=== PATIENT | male | born 1945 | race African-American/Black ===

== ENCOUNTER 2021-03-11 17:38 | Inpatient (IN) ==
[2021-03-11] MEDS ORDERED: SODIUM CHLORIDE 0.9% 1,000 ML IV STA (23:14)
[2021-03-12 00:40] LABS: Basophils % 0.4 % (0.0-0.8); Eosinophils # 0.1 10*3/uL (0.0-0.87); Eosinophils % 1.3 % (0.00-10.9); Hematocrit 36.7 VOL% (42.0-52.0); Hemoglobin 11.8 GM/DL (14.0-18.0); Immature Granulocytes % 0.5 %; Immature Granulocytes Absolute 0.04 #; Lymphocytes % 24.9 % (21.2-54.2); Mean Corpuscular HGB Conc 32.2 GM/DL (32-36); Mean Corpuscular Volume 76.6 FL (87-102); Mean Platelet Volume 10.8 FL (9.6-12.0); Monocytes % 13.5 % (1.7-12.7); Neutrophils % 59.4 % (38.7-73.9); Platelet Count 299 T/CUMM (130-400); Red Blood Count 4.79 MC/CUMM (3.8-5.5); Red Cell Distribution Width 16.4 % (9.3-17.3); White Blood Count 7.8 T/CUMM (4-12)
[2021-03-12 00:42] LABS: Albumin 3.1 G/DL (3.4-5.0); Bilirubin,Total 0.7 MG/DL (0.20-1.00); Calcium 9.9 MG/DL (8.5-10.1); Osmolality,Calculated 287.1 MOS/KG (273-304); Potassium 4.1 MMOL/L (3.5-5.1); Total Protein 7.7 G/DL (6.4-8.2)
[2021-03-12 01:16] LABS: Bilirubin,Urine Negative (Negative); Blood, Urine Negative (Negative); Glucose,Urine (UA) Negative (Negative); Hyaline Casts,Urine 3 /LPF (0-3); Ketones,Urine Negative (Negative); Mucus,Urine Occasional /LPF (Occasional); Nitrite,Urine Negative (Negative); Protein,Urine Negative; Squamous Epithelial Cell,Urine Occasional /HPF (0-10); Urine Appearance CLEAR (Clear); Urine Color Yellow (Yellow); Urine Specific Gravity 1.018 (1.001-1.035); Urine Urobilinogen < 2.0 EU/DL (0.2-1.0)
[2021-03-12 04:20] LABS: PT Patient Result 83.3 SECS (10.5-12.0)
[2021-03-12 04:22] LABS: INR 8.7
[2021-03-12] MEDS ORDERED: PIPERACILLIN/TAZOBACTAM 3,375 MG in SODIUM CHLORIDE 0.9% 100 ML IV STA (04:32)
[2021-03-12] MEDS ORDERED: GLUCAGON 1 MG VIAL IM PRN (05:31)
[2021-03-12] MEDS ORDERED: DEXTROSE 50% 25 GM/50 ML SYRINGE IV PRN (05:31)
[2021-03-12] MEDS ORDERED: ONDANSETRON 4 MG/2 ML VIAL IV PRN (05:33)
[2021-03-12] MEDS ORDERED: hydrALAZINE 20 MG/1 ML VIAL IV PRN (05:33)
[2021-03-12] MEDS ORDERED: MORPHINE 2 MG/1 ML SYRINGE IV PRN (05:33)
[2021-03-12] MEDS ORDERED: SIMETHICONE CHEW 125 MG TABLET PO PRN (05:33)
[2021-03-12] MEDS ORDERED: ACETAMINOPHEN 325 MG TABLET PO PRN (05:33)
[2021-03-12] MEDS ORDERED: cefTRIAXone 1,000 MG in SODIUM CHLORIDE 0.9% 100 ML IV SCH (06:00)
[2021-03-12] MEDS ORDERED: AZITHROMYCIN INJ 500 MG in SODIUM CHLORIDE 0.9% 250 ML IV SCH (06:00)
[2021-03-12] MEDS: SODIUM CHLORIDE 0.45% 1,000 ML IV SCH ×2 (06:20→22:42)
[2021-03-12 06:55] LABS: PT Patient Result 92.4 SECS (10.5-12.0)
[2021-03-12 06:58] LABS: INR 9.7; Partial Thromboplastin Time 78.2 SECS (23.8-32.1)
[2021-03-12] MEDS ORDERED: ALBUTEROL 2.5 MG/3 ML NEB RESP TX SCH (07:00)
[2021-03-12] MEDS: INSULIN REGULAR 100 UNIT/ML SUBCUT SCH ×4 (08:58→22:42)
[2021-03-12] MEDS: DOCUSATE SODIUM 100 MG CAPSULE PO SCH ×2 (09:23→20:35)
[2021-03-12] MEDS: carvediloL 3.125 MG TABLET PO SCH ×2 (09:23→20:35)
[2021-03-12] MEDS: guaiFENesin/DM ER 600-30 MG TABLET PO SCH ×2 (09:24→20:34)
[2021-03-12] MEDS: PANTOPRAZOLE 40 MG TABLET PO SCH (09:24)
[2021-03-12] MEDS ORDERED: PHYTONADIONE 10 MG/1 ML AMP SUBCUT ONE (15:38)
[2021-03-12] MEDS: TAMSULOSIN 0.4 MG CAPSULE PO SCH (22:42)
[2021-03-13 05:57] LABS: Basophils % 0.2 % (0.0-0.8); Eosinophils # 0.1 10*3/uL (0.0-0.87); Eosinophils % 1.1 % (0.00-10.9); Hematocrit 33.2 VOL% (42.0-52.0); Hemoglobin 10.6 GM/DL (14.0-18.0); Immature Granulocytes % 0.4 %; Immature Granulocytes Absolute 0.03 #; Lymphocytes # 1.7 10*3/uL (1.4-4.0); Lymphocytes % 21.3 % (21.2-54.2); Mean Corpuscular HGB Conc 31.9 GM/DL (32-36); Mean Corpuscular Volume 77.6 FL (87-102); Mean Platelet Volume 10.7 FL (9.6-12.0); Monocytes % 12.1 % (1.7-12.7); Neutrophils % 64.9 % (38.7-73.9); Platelet Count 265 T/CUMM (130-400); Red Blood Count 4.28 MC/CUMM (3.8-5.5); Red Cell Distribution Width 16.5 % (9.3-17.3); White Blood Count 8.1 T/CUMM (4-12)
[2021-03-13 06:07] LABS: INR 4.7
[2021-03-13 06:10] LABS: PT Patient Result 47.4 SECS (10.5-12.0)
[2021-03-13 06:25] LABS: Eosinophils 3 % (0-10); Lymphocytes 21 % (20-55); Platelet Estimate Adequate; Segmented Neutrophils 68 % (50-85); Total Cells Counted 100
[2021-03-13 06:26] LABS: HDL Cholesterol 33 MG/DL (40-60); Hypochromasia 1+; Microcytosis 1+; Risk Ratio 3.27; Thyroid Stimulating Hormone < 0.005 uIU/ml (0.358-3.74); Triglycerides 125 MG/DL (2-150)
[2021-03-13] MEDS: INSULIN REGULAR 100 UNIT/ML SUBCUT SCH ×4 (08:08→21:11)
[2021-03-13] MEDS: DOCUSATE SODIUM 100 MG CAPSULE PO SCH ×2 (09:59→21:11)
[2021-03-13] MEDS: ASPIRIN EC 81 MG TABLET PO SCH (09:59)
[2021-03-13] MEDS: carvediloL 3.125 MG TABLET PO SCH (10:00)
[2021-03-13] MEDS: PANTOPRAZOLE 40 MG TABLET PO SCH (10:00)
[2021-03-13] MEDS: guaiFENesin/DM ER 600-30 MG TABLET PO SCH ×2 (10:00→21:10)
[2021-03-13] MEDS: amLODIPine 5 MG TABLET PO SCH (10:01)
[2021-03-13] MEDS: cefTRIAXone 1,000 MG in SODIUM CHLORIDE 0.9% 100 ML IV SCH (11:53)
[2021-03-13] MEDS: methylPREDNISolone SOD SUC 40 MG/1 ML VIAL IV SCH ×2 (12:30→21:13)
[2021-03-13] MEDS: ALBUTEROL/IPRATROPIUM 3 ML NEB RESP TX SCH ×2 (13:26→20:22)
[2021-03-13 14:09] LABS: Free T4 (Free Thyroxine) 3.82 NG/DL (0.76-1.46); Thyroid Stimulating Hormone < 0.005 uIU/ml (0.358-3.74)
[2021-03-13] MEDS: SODIUM CHLORIDE 0.45% 1,000 ML IV SCH ×2 (15:10→22:45)
[2021-03-13] MEDS: TAMSULOSIN 0.4 MG CAPSULE PO SCH (21:10)
[2021-03-14] MEDS: ALBUTEROL/IPRATROPIUM 3 ML NEB RESP TX SCH ×4 (01:00→19:49)
[2021-03-14] MEDS: methylPREDNISolone SOD SUC 40 MG/1 ML VIAL IV SCH ×3 (03:33→17:49)
[2021-03-14] MEDS: SODIUM CHLORIDE 0.45% 1,000 ML IV SCH (06:47)
[2021-03-14 07:28] LABS: Hematocrit 30.2 VOL% (42.0-52.0); Hemoglobin 9.9 GM/DL (14.0-18.0); Immature Granulocytes % 0.4 %; Immature Granulocytes Absolute 0.03 #; Lymphocytes # 0.4 10*3/uL (1.4-4.0); Lymphocytes % 5.4 % (21.2-54.2); Mean Corpuscular HGB Conc 32.8 GM/DL (32-36); Mean Corpuscular Volume 75.7 FL (87-102); Mean Platelet Volume 10.9 FL (9.6-12.0); Monocytes % 3.7 % (1.7-12.7); Neutrophils % 90.5 % (38.7-73.9); Platelet Count 232 T/CUMM (130-400); Red Blood Count 3.99 MC/CUMM (3.8-5.5); Red Cell Distribution Width 16.1 % (9.3-17.3); White Blood Count 6.7 T/CUMM (4-12)
[2021-03-14 07:37] LABS: INR 1.4; PT Patient Result 15.5 SECS (10.5-12.0)
[2021-03-14 08:01] LABS: Calcium 9.2 MG/DL (8.5-10.1); Osmolality,Calculated 292.1 MOS/KG (273-304); Potassium 4.2 MMOL/L (3.5-5.1)
[2021-03-14] MEDS ORDERED: FUROSEMIDE 40 MG/4 ML VIAL IV ONE ×2 (09:45→14:10)
[2021-03-14] MEDS: INSULIN REGULAR 100 UNIT/ML SUBCUT SCH ×4 (10:32→20:41)
[2021-03-14] MEDS: DOCUSATE SODIUM 100 MG CAPSULE PO SCH ×2 (10:33→20:41)
[2021-03-14] MEDS: amLODIPine 5 MG TABLET PO SCH (10:34)
[2021-03-14] MEDS: METOPROLOL SUCCINATE XL 50 MG TABLET PO SCH (10:34)
[2021-03-14] MEDS: ASPIRIN EC 81 MG TABLET PO SCH (10:34)
[2021-03-14] MEDS: PANTOPRAZOLE 40 MG TABLET PO SCH (10:34)
[2021-03-14] MEDS: guaiFENesin/DM ER 600-30 MG TABLET PO SCH ×2 (10:34→20:41)
[2021-03-14] MEDS: cefTRIAXone 1,000 MG in SODIUM CHLORIDE 0.9% 100 ML IV SCH (10:51)
[2021-03-14] MEDS: CLOPIDOGREL 75 MG TABLET PO SCH (11:05)
[2021-03-14] MEDS: FUROSEMIDE 40 MG/4 ML VIAL IV SCH (15:35)
[2021-03-14] MEDS: TAMSULOSIN 0.4 MG CAPSULE PO SCH (20:41)
[2021-03-15] MEDS: ALBUTEROL/IPRATROPIUM 3 ML NEB RESP TX SCH ×4 (00:39→19:36)
[2021-03-15] MEDS: INSULIN REGULAR 100 UNIT/ML SUBCUT SCH ×4 (13:27→21:03)
[2021-03-15] MEDS: methylPREDNISolone SOD SUC 40 MG/1 ML VIAL IV SCH ×4 (13:33→18:22)
[2021-03-15 13:38] LABS: Hematocrit 30.8 VOL% (42.0-52.0); Hemoglobin 9.9 GM/DL (14.0-18.0); Immature Granulocytes % 0.6 %; Immature Granulocytes Absolute 0.06 #; Lymphocytes # 0.6 10*3/uL (1.4-4.0); Lymphocytes % 5.9 % (21.2-54.2); Mean Corpuscular HGB Conc 32.1 GM/DL (32-36); Mean Corpuscular Volume 75.1 FL (87-102); Mean Platelet Volume 11.6 FL (9.6-12.0); Monocytes % 6.1 % (1.7-12.7); Neutrophils % 87.4 % (38.7-73.9); Platelet Count 286 T/CUMM (130-400); Red Cell Distribution Width 15.9 % (9.3-17.3); White Blood Count 10.5 T/CUMM (4-12)
[2021-03-15] MEDS: ASPIRIN EC 81 MG TABLET PO SCH (13:40)
[2021-03-15] MEDS: METOPROLOL SUCCINATE XL 50 MG TABLET PO SCH (13:42)
[2021-03-15] MEDS: PANTOPRAZOLE 40 MG TABLET PO SCH (13:42)
[2021-03-15] MEDS: cefTRIAXone 1,000 MG in SODIUM CHLORIDE 0.9% 100 ML IV SCH (13:42)
[2021-03-15] MEDS: DOCUSATE SODIUM 100 MG CAPSULE PO SCH ×2 (13:43→21:02)
[2021-03-15] MEDS: CLOPIDOGREL 75 MG TABLET PO SCH (13:43)
[2021-03-15] MEDS: amLODIPine 5 MG TABLET PO SCH (13:43)
[2021-03-15] MEDS: guaiFENesin/DM ER 600-30 MG TABLET PO SCH ×2 (13:44→21:02)
[2021-03-15] MEDS: FUROSEMIDE 40 MG/4 ML VIAL IV SCH ×2 (13:45→15:14)
[2021-03-15 14:09] LABS: Calcium 9.6 MG/DL (8.5-10.1)
[2021-03-15 14:10] LABS: Osmolality,Calculated 296.1 MOS/KG (273-304); Potassium 4.2 MMOL/L (3.5-5.1)
[2021-03-15] MEDS: WARFARIN 5 MG TABLET PO SCH (17:04)
[2021-03-15] MEDS: INSULIN GLARGINE 100 UNIT/ML SUBCUT SCH (21:02)
[2021-03-15] MEDS: TAMSULOSIN 0.4 MG CAPSULE PO SCH (21:02)
[2021-03-16] MEDS: ALBUTEROL/IPRATROPIUM 3 ML NEB RESP TX SCH ×6 (00:08→19:48)
[2021-03-16] MEDS: methylPREDNISolone SOD SUC 40 MG/1 ML VIAL IV SCH ×3 (02:18→17:50)
[2021-03-16 05:48] LABS: Calcium 9.3 MG/DL (8.5-10.1); Osmolality,Calculated 299.1 MOS/KG (273-304)
[2021-03-16] MEDS: INSULIN REGULAR 100 UNIT/ML SUBCUT SCH ×4 (09:02→21:01)
[2021-03-16] MEDS: LOSARTAN 25 MG TABLET PO SCH (09:25)
[2021-03-16] MEDS: METOPROLOL SUCCINATE XL 50 MG TABLET PO SCH (09:25)
[2021-03-16] MEDS: amLODIPine 5 MG TABLET PO SCH (09:25)
[2021-03-16] MEDS: ASPIRIN EC 81 MG TABLET PO SCH (09:25)
[2021-03-16] MEDS: DOCUSATE SODIUM 100 MG CAPSULE PO SCH ×2 (09:25→21:00)
[2021-03-16] MEDS: PANTOPRAZOLE 40 MG TABLET PO SCH (09:26)
[2021-03-16] MEDS: guaiFENesin/DM ER 600-30 MG TABLET PO SCH ×2 (09:26→21:00)
[2021-03-16] MEDS: FUROSEMIDE 40 MG/4 ML VIAL IV SCH ×2 (09:26→17:20)
[2021-03-16] MEDS: CLOPIDOGREL 75 MG TABLET PO SCH (09:26)
[2021-03-16] MEDS: cefTRIAXone 1,000 MG in SODIUM CHLORIDE 0.9% 100 ML IV SCH (09:33)
[2021-03-16 10:57] LABS: INR 1.1; PT Patient Result 12.6 SECS (10.5-12.0)
[2021-03-16] MEDS: methIMAzole 5 MG TABLET PO SCH ×2 (17:20→21:00)
[2021-03-16] MEDS: WARFARIN 5 MG TABLET PO SCH (17:21)
[2021-03-16] MEDS: INSULIN GLARGINE 100 UNIT/ML SUBCUT SCH (21:00)
[2021-03-16] MEDS: TAMSULOSIN 0.4 MG CAPSULE PO SCH (21:00)
[2021-03-17] MEDS: ALBUTEROL/IPRATROPIUM 3 ML NEB RESP TX SCH ×4 (00:41→19:30)
[2021-03-17] MEDS: methylPREDNISolone SOD SUC 40 MG/1 ML VIAL IV SCH ×3 (01:42→17:31)
[2021-03-17 06:28] LABS: Basophils % 0.1 % (0.0-0.8); Hematocrit 31.3 VOL% (42.0-52.0); Hemoglobin 10.4 GM/DL (14.0-18.0); Immature Granulocytes % 1.2 %; Immature Granulocytes Absolute 0.14 #; Lymphocytes % 8.4 % (21.2-54.2); Mean Corpuscular HGB Conc 33.2 GM/DL (32-36); Mean Corpuscular Volume 73.3 FL (87-102); Monocytes % 7.2 % (1.7-12.7); NRBC # 0.03 10*3/uL; Neutrophils % 83.1 % (38.7-73.9); Platelet Count 283 T/CUMM (130-400); Red Blood Count 4.27 MC/CUMM (3.8-5.5); Red Cell Distribution Width 15.9 % (9.3-17.3); White Blood Count 11.6 T/CUMM (4-12)
[2021-03-17 06:36] LABS: INR 1.3; PT Patient Result 14.4 SECS (10.5-12.0)
[2021-03-17 06:49] LABS: Albumin 2.6 G/DL (3.4-5.0); Calcium 8.9 MG/DL (8.5-10.1); Total Protein 6.5 G/DL (6.4-8.2)
[2021-03-17] MEDS: INSULIN REGULAR 100 UNIT/ML SUBCUT SCH ×4 (08:25→21:28)
[2021-03-17] MEDS: LOSARTAN 25 MG TABLET PO SCH (09:27)
[2021-03-17] MEDS: guaiFENesin/DM ER 600-30 MG TABLET PO SCH ×2 (09:27→21:27)
[2021-03-17] MEDS: DOCUSATE SODIUM 100 MG CAPSULE PO SCH ×2 (09:27→21:27)
[2021-03-17] MEDS: methIMAzole 5 MG TABLET PO SCH ×3 (09:27→21:26)
[2021-03-17] MEDS: ASPIRIN EC 81 MG TABLET PO SCH (09:27)
[2021-03-17] MEDS: CLOPIDOGREL 75 MG TABLET PO SCH (09:27)
[2021-03-17] MEDS: FUROSEMIDE 40 MG/4 ML VIAL IV SCH ×2 (09:28→16:35)
[2021-03-17] MEDS: METOPROLOL SUCCINATE XL 100 MG TABLET PO SCH (09:28)
[2021-03-17] MEDS: PANTOPRAZOLE 40 MG TABLET PO SCH (09:28)
[2021-03-17] MEDS: ASCORBIC ACID 500 MG TABLET PO SCH ×2 (09:28→21:26)
[2021-03-17] MEDS: amLODIPine 5 MG TABLET PO SCH (09:28)
[2021-03-17] MEDS: cefTRIAXone 1,000 MG in SODIUM CHLORIDE 0.9% 100 ML IV SCH (09:31)
[2021-03-17] MEDS: HEPARIN DRIP 25,000 UNITS/500 ML PREMIX IV SCH (16:35)
[2021-03-17] MEDS: WARFARIN 5 MG TABLET PO SCH (17:31)
[2021-03-17] MEDS: TAMSULOSIN 0.4 MG CAPSULE PO SCH (21:26)
[2021-03-17] MEDS: INSULIN GLARGINE 100 UNIT/ML SUBCUT SCH (21:27)
[2021-03-18] MEDS: ALBUTEROL/IPRATROPIUM 3 ML NEB RESP TX SCH ×4 (00:30→22:45)
[2021-03-18] MEDS: methylPREDNISolone SOD SUC 40 MG/1 ML VIAL IV SCH ×3 (02:22→21:10)
[2021-03-18 03:26] LABS: INR 1.6; PT Patient Result 17.6 SECS (10.5-12.0)
[2021-03-18] MEDS: ASPIRIN EC 81 MG TABLET PO SCH (09:03)
[2021-03-18] MEDS: LOSARTAN 25 MG TABLET PO SCH (09:03)
[2021-03-18] MEDS: ASCORBIC ACID 500 MG TABLET PO SCH ×2 (09:03→21:07)
[2021-03-18] MEDS: guaiFENesin/DM ER 600-30 MG TABLET PO SCH ×2 (09:03→21:07)
[2021-03-18] MEDS: amLODIPine 5 MG TABLET PO SCH (09:03)
[2021-03-18] MEDS: DOCUSATE SODIUM 100 MG CAPSULE PO SCH ×2 (09:04→21:08)
[2021-03-18] MEDS: methIMAzole 5 MG TABLET PO SCH ×3 (09:04→21:07)
[2021-03-18] MEDS: METOPROLOL SUCCINATE XL 100 MG TABLET PO SCH (09:04)
[2021-03-18] MEDS: PANTOPRAZOLE 40 MG TABLET PO SCH (09:04)
[2021-03-18] MEDS: INSULIN REGULAR 100 UNIT/ML SUBCUT SCH ×4 (09:04→21:02)
[2021-03-18] MEDS: CLOPIDOGREL 75 MG TABLET PO SCH (09:04)
[2021-03-18] MEDS: cefTRIAXone 1,000 MG in SODIUM CHLORIDE 0.9% 100 ML IV SCH ×2 (09:17→10:53)
[2021-03-18] MEDS: FUROSEMIDE 40 MG/4 ML VIAL IV SCH (10:31)
[2021-03-18] MEDS: HEPARIN DRIP 25,000 UNITS/500 ML PREMIX IV SCH (15:17)
[2021-03-18] MEDS: WARFARIN 5 MG TABLET PO SCH (17:11)
[2021-03-18] MEDS: INSULIN GLARGINE 100 UNIT/ML SUBCUT SCH (21:01)
[2021-03-18] MEDS: TAMSULOSIN 0.4 MG CAPSULE PO SCH (21:08)
[2021-03-19] MEDS: ALBUTEROL/IPRATROPIUM 3 ML NEB RESP TX SCH ×4 (01:04→20:54)
[2021-03-19 06:43] LABS: Basophils % 0.1 % (0.0-0.8); Hematocrit 33.9 VOL% (42.0-52.0); Hemoglobin 11.1 GM/DL (14.0-18.0); Immature Granulocytes % 1.3 %; Immature Granulocytes Absolute 0.19 #; Lymphocytes # 1.1 10*3/uL (1.4-4.0); Lymphocytes % 7.4 % (21.2-54.2); Mean Corpuscular HGB Conc 32.7 GM/DL (32-36); Mean Platelet Volume 11.3 FL (9.6-12.0); Monocytes % 6.8 % (1.7-12.7); NRBC # 0.03 10*3/uL; Neutrophils % 84.4 % (38.7-73.9); Platelet Count 301 T/CUMM (130-400); Red Blood Count 4.58 MC/CUMM (3.8-5.5); Red Cell Distribution Width 16.2 % (9.3-17.3)
[2021-03-19 06:45] LABS: INR 2.2; PT Patient Result 23.3 SECS (10.5-12.0)
[2021-03-19 07:04] LABS: Calcium 8.9 MG/DL (8.5-10.1); Osmolality,Calculated 291.7 MOS/KG (273-304); Potassium 4.2 MMOL/L (3.5-5.1)
[2021-03-19] MEDS: methylPREDNISolone SOD SUC 40 MG/1 ML VIAL IV SCH ×2 (08:28→21:17)
[2021-03-19] MEDS: INSULIN REGULAR 100 UNIT/ML SUBCUT SCH ×4 (09:33→21:47)
[2021-03-19] MEDS: DOCUSATE SODIUM 100 MG CAPSULE PO SCH ×2 (09:34→21:18)
[2021-03-19] MEDS: METOPROLOL SUCCINATE XL 100 MG TABLET PO SCH (09:34)
[2021-03-19] MEDS: ASPIRIN EC 81 MG TABLET PO SCH (09:34)
[2021-03-19] MEDS: methIMAzole 5 MG TABLET PO SCH ×3 (09:34→21:18)
[2021-03-19] MEDS: CLOPIDOGREL 75 MG TABLET PO SCH (09:34)
[2021-03-19] MEDS: LOSARTAN 25 MG TABLET PO SCH (09:34)
[2021-03-19] MEDS: ASCORBIC ACID 500 MG TABLET PO SCH ×2 (09:35→21:18)
[2021-03-19] MEDS: amLODIPine 5 MG TABLET PO SCH (09:35)
[2021-03-19] MEDS: PANTOPRAZOLE 40 MG TABLET PO SCH (09:35)
[2021-03-19] MEDS: cefTRIAXone 1,000 MG in SODIUM CHLORIDE 0.9% 100 ML IV SCH (09:36)
[2021-03-19] MEDS: guaiFENesin/DM ER 600-30 MG TABLET PO SCH ×2 (09:54→21:18)
[2021-03-19] MEDS: WARFARIN 5 MG TABLET PO SCH ×2 (16:52→17:19)
[2021-03-19] MEDS: TAMSULOSIN 0.4 MG CAPSULE PO SCH (21:18)
[2021-03-19] MEDS: INSULIN GLARGINE 100 UNIT/ML SUBCUT SCH (21:19)
[2021-03-20] MEDS: ALBUTEROL/IPRATROPIUM 3 ML NEB RESP TX SCH ×3 (01:44→13:10)
[2021-03-20 07:20] LABS: Basophils % 0.1 % (0.0-0.8); Hematocrit 36.1 VOL% (42.0-52.0); Hemoglobin 11.8 GM/DL (14.0-18.0); Immature Granulocytes Absolute 0.14 #; Lymphocytes # 0.9 10*3/uL (1.4-4.0); Lymphocytes % 5.9 % (21.2-54.2); Mean Corpuscular HGB Conc 32.7 GM/DL (32-36); Mean Corpuscular Volume 75.2 FL (87-102); Mean Platelet Volume 11.2 FL (9.6-12.0); Monocytes % 4.9 % (1.7-12.7); NRBC # 0.02 10*3/uL; Neutrophils % 88.1 % (38.7-73.9); Platelet Count 316 T/CUMM (130-400); Red Cell Distribution Width 16.4 % (9.3-17.3); White Blood Count 14.4 T/CUMM (4-12)
[2021-03-20 07:34] LABS: Calcium 8.9 MG/DL (8.5-10.1); Osmolality,Calculated 291.5 MOS/KG (273-304); Potassium 4.3 MMOL/L (3.5-5.1)
[2021-03-20 08:28] LABS: INR 2.9; PT Patient Result 29.8 SECS (10.5-12.0)
[2021-03-20] MEDS: INSULIN REGULAR 100 UNIT/ML SUBCUT SCH ×2 (08:32→12:16)
[2021-03-20] MEDS: PANTOPRAZOLE 40 MG TABLET PO SCH (09:44)
[2021-03-20] MEDS: guaiFENesin/DM ER 600-30 MG TABLET PO SCH (09:44)
[2021-03-20] MEDS: ASCORBIC ACID 500 MG TABLET PO SCH (09:44)
[2021-03-20] MEDS: methIMAzole 5 MG TABLET PO SCH (09:44)
[2021-03-20] MEDS: ASPIRIN EC 81 MG TABLET PO SCH (09:44)
[2021-03-20] MEDS: amLODIPine 5 MG TABLET PO SCH (09:44)
[2021-03-20] MEDS: LOSARTAN 25 MG TABLET PO SCH (09:44)
[2021-03-20] MEDS: DOCUSATE SODIUM 100 MG CAPSULE PO SCH (09:44)
[2021-03-20] MEDS: cefTRIAXone 1,000 MG in SODIUM CHLORIDE 0.9% 100 ML IV SCH (09:45)
[2021-03-20] MEDS: methylPREDNISolone SOD SUC 40 MG/1 ML VIAL IV SCH (09:45)
[2021-03-20] MEDS: METOPROLOL SUCCINATE XL 100 MG TABLET PO SCH (09:45)
[2021-03-20 12:36] VITALS: BP 107/57
== END 2021-03-20 14:50 | disposition swing bed (61) | DRG 193 ==
LOC: N.ED 17:38 → SUATTDRO 03-12 05:31 → N.EDINP 03-12 05:31 → N.TELEN 03-12 13:25
PROVIDERS: ADMIT Emergency Medicine; ATTEND Internal Medicine

== ENCOUNTER 2021-06-18 15:15 | Inpatient (IN) ==
[2021-06-18] MEDS ORDERED: AZITHROMYCIN INJ 500 MG in SODIUM CHLORIDE 0.9% 250 ML IV STA (16:59)
[2021-06-18] MEDS ORDERED: cefTRIAXone 1,000 MG in SODIUM CHLORIDE 0.9% 100 ML IV STA (16:59)
[2021-06-18] MEDS ORDERED: ONDANSETRON 4 MG/2 ML VIAL IV PRN (17:54)
[2021-06-18] MEDS ORDERED: guaiFENesin/DM ER 600-30 MG TABLET PO PRN (17:54)
[2021-06-18] MEDS ORDERED: BISACODYL 5 MG TABLET PO PRN (17:54)
[2021-06-18] MEDS ORDERED: DOCUSATE SODIUM 100 MG CAPSULE PO PRN (17:54)
[2021-06-18] MEDS ORDERED: hydrALAZINE 20 MG/1 ML VIAL IV PRN (17:54)
[2021-06-18] MEDS ORDERED: GLUCAGON 1 MG VIAL IM PRN ×2 (17:54)
[2021-06-18] MEDS ORDERED: DEXTROSE 50% 25 GM/50 ML VIAL IV PRN (17:54)
[2021-06-18 17:58] LABS: Basophils % 0.3 % (0.0-0.8); Eosinophils # 0.1 10*3/uL (0.0-0.87); Eosinophils % 0.4 % (0.00-10.9); Hematocrit 34.6 VOL% (42.0-52.0); Hemoglobin 10.7 GM/DL (14.0-18.0); Immature Granulocytes % 0.5 %; Immature Granulocytes Absolute 0.06 #; Lymphocytes # 3.4 10*3/uL (1.4-4.0); Lymphocytes % 29.6 % (21.2-54.2); Mean Corpuscular HGB Conc 30.9 GM/DL (32-36); Mean Corpuscular Volume 73.2 FL (87-102); Mean Platelet Volume 10.7 FL (9.6-12.0); Monocytes % 14.6 % (1.7-12.7); Neutrophils % 54.6 % (38.7-73.9); Platelet Count 354 T/CUMM (130-400); Red Blood Count 4.73 MC/CUMM (3.8-5.5); Red Cell Distribution Width 18.3 % (9.3-17.3); White Blood Count 11.5 T/CUMM (4-12)
[2021-06-18] MEDS ORDERED: DEXTROSE 10% 250 ML BAG IV PRN (18:13)
[2021-06-18] MEDS ORDERED: NICOTINE 14 MG/24 HR PATCH TRANSDERM PRN (18:29)
[2021-06-18 18:50] LABS: Alanine Aminotransferase 23 U/L (16-61); Albumin 2.7 G/DL (3.4-5.0); Alkaline Phosphatase 154 U/L (45-117); Aspartate Amino Transferase 30 U/L (0-37); Blood Urea Nitrogen 28 MG/DL (7-18); Calcium 9.4 MG/DL (8.5-10.1); Carbon Dioxide 19 MMOL/L (21-32); Estimated Glom Filtration Rate 79 ML/MIN; Glucose 224 MG/DL (74-106); Osmolality,Calculated 293.3 MOS/KG (273-304); Potassium 3.8 MMOL/L (3.5-5.1); Sodium 141 MMOL/L (136-145); Total Protein 7.6 G/DL (6.4-8.2)
[2021-06-18 19:01] LABS: Lymphocytes 28 % (20-55); Segmented Neutrophils 61 % (50-85); Total Cells Counted 100
[2021-06-18 19:02] LABS: Anisocytosis Slight; Burr Cells Few; Poikilocytosis Slight
[2021-06-18] MEDS ORDERED: FUROSEMIDE 40 MG/4 ML VIAL IV ONE (19:32)
[2021-06-18] MEDS ORDERED: METOPROLOL SUCCINATE XL 100 MG TABLET PO ONE (20:44)
[2021-06-18] MEDS: INSULIN LISPRO 100 UNIT/ML SUBCUT SCH (20:45)
[2021-06-18] MEDS: ASCORBIC ACID 500 MG TABLET PO SCH (20:52)
[2021-06-18 21:18] LABS: PT Patient Result > 178.9 SECS (10.5-12.0)
[2021-06-18 21:23] LABS: INR > 17.6
[2021-06-18 23:26] LABS: PT Patient Result > 178.9 SECS (10.5-12.0)
[2021-06-18 23:29] LABS: INR > 17.6
[2021-06-18] MEDS ORDERED: PHYTONADIONE 5 MG/5 ML ORAL.SYR PO ONE (23:40)
[2021-06-19] MEDS: ALBUTEROL/IPRATROPIUM 3 ML NEB RESP TX SCH ×5 (00:15→19:29)
[2021-06-19] MEDS: ACETAMINOPHEN 325 MG TABLET PO PRN (04:20)
[2021-06-19 06:36] LABS: Basophils % 0.1 % (0.0-0.8); Eosinophils % 0.4 % (0.00-10.9); Hematocrit 30.2 VOL% (42.0-52.0); Hemoglobin 9.7 GM/DL (14.0-18.0); Immature Granulocytes Absolute 0.08 #; Lymphocytes # 1.6 10*3/uL (1.4-4.0); Lymphocytes % 19.7 % (21.2-54.2); Mean Corpuscular HGB Conc 32.1 GM/DL (32-36); Mean Corpuscular Volume 70.7 FL (87-102); Mean Platelet Volume 10.1 FL (9.6-12.0); Monocytes % 11.8 % (1.7-12.7); Platelet Count 291 T/CUMM (130-400); Red Blood Count 4.27 MC/CUMM (3.8-5.5); Red Cell Distribution Width 17.7 % (9.3-17.3)
[2021-06-19 07:00] LABS: Alanine Aminotransferase 21 U/L (16-61); Albumin 2.4 G/DL (3.4-5.0); Alkaline Phosphatase 135 U/L (45-117); Aspartate Amino Transferase 29 U/L (0-37); Blood Urea Nitrogen 31 MG/DL (7-18); Calcium 8.7 MG/DL (8.5-10.1); Carbon Dioxide 22 MMOL/L (21-32); Estimated Glom Filtration Rate 87 ML/MIN; Glucose 151 MG/DL (74-106); HDL Cholesterol 27 MG/DL (40-60); Potassium 3.9 MMOL/L (3.5-5.1); Risk Ratio 2.85; Sodium 143 MMOL/L (136-145); Thyroid Stimulating Hormone < 0.005 uIU/ml (0.358-3.74); Total Protein 6.9 G/DL (6.4-8.2); Triglycerides 86 MG/DL (2-150); VLDL Cholesterol 17.2 MG/DL
[2021-06-19 07:01] LABS: Eosinophils 1 % (0-10); Hypochromia 1+; Lymphocytes 19 % (20-55); Segmented Neutrophils 68 % (50-85); Total Cells Counted 100
[2021-06-19 07:02] LABS: Microcytosis 1+; Ovalocytes Slight; Target Cells Slight
[2021-06-19 07:56] LABS: PT Patient Result 166.7 SECS (10.5-12.0)
[2021-06-19 08:00] LABS: INR 18.5
[2021-06-19] MEDS ORDERED: MAGNESIUM SULF RIDER 2 GM/50 ML PREMIX IV ONE (08:00)
[2021-06-19] MEDS ORDERED: PHYTONADIONE 10 MG/1 ML AMP SUBCUT ONE (08:30)
[2021-06-19] MEDS: ASCORBIC ACID 500 MG TABLET PO SCH ×2 (09:34→20:53)
[2021-06-19] MEDS: amLODIPine 5 MG TABLET PO SCH (09:34)
[2021-06-19] MEDS: METOPROLOL SUCCINATE XL 100 MG TABLET PO SCH (09:34)
[2021-06-19] MEDS: INSULIN LISPRO 100 UNIT/ML SUBCUT SCH ×4 (09:34→21:07)
[2021-06-19] MEDS: PANTOPRAZOLE 40 MG TABLET PO SCH (09:34)
[2021-06-19] MEDS ORDERED: SODIUM CHLORIDE 0.9% 1,000 ML IV PRN (09:49)
[2021-06-19] MEDS: methIMAzole 5 MG TABLET PO SCH ×3 (11:40→20:54)
[2021-06-19] MEDS: FUROSEMIDE 40 MG/4 ML VIAL IV SCH ×2 (11:40→15:40)
[2021-06-19] MEDS: cefTRIAXone 1,000 MG in SODIUM CHLORIDE 0.9% 100 ML IV SCH (17:19)
[2021-06-19 17:52] LABS: Bacteria,Urine Occasional /HPF (Few); Hyaline Casts,Urine 1 /LPF (0-3); Mucus,Urine Occasional /LPF (Occasional); RBC,Urine 1 /HPF (0-4)
[2021-06-19 17:55] LABS: Urine Appearance Clear (Clear); Urine Color Yellow (Yellow)
[2021-06-19 17:56] LABS: Bilirubin,Urine Negative (Negative); Blood, Urine Trace mg/dL (Negative); Glucose,Urine (UA) Negative (Negative); Ketones,Urine Negative (Negative); Nitrite,Urine Negative (Negative); Protein,Urine Negative (Negative); Urine Specific Gravity 1.015 (1.001-1.035); Urine Urobilinogen 0.2 eU/dL (<2.0)
[2021-06-19] MEDS: AZITHROMYCIN INJ 250 MG in SODIUM CHLORIDE 0.9% 250 ML IV SCH (20:53)
[2021-06-20] MEDS: ALBUTEROL/IPRATROPIUM 3 ML NEB RESP TX SCH ×4 (00:09→19:24)
[2021-06-20] MEDS: ACETAMINOPHEN 325 MG TABLET PO PRN (01:06)
[2021-06-20 05:55] LABS: Basophils % 0.2 % (0.0-0.8); Eosinophils % 0.2 % (0.00-10.9); Hematocrit 31.1 VOL% (42.0-52.0); Immature Granulocytes % 0.6 %; Immature Granulocytes Absolute 0.05 #; Lymphocytes # 1.3 10*3/uL (1.4-4.0); Lymphocytes % 15.9 % (21.2-54.2); Mean Corpuscular HGB Conc 32.2 GM/DL (32-36); Mean Corpuscular Volume 71.2 FL (87-102); Mean Platelet Volume 10.7 FL (9.6-12.0); Monocytes % 13.1 % (1.7-12.7); Platelet Count 276 T/CUMM (130-400); Red Blood Count 4.37 MC/CUMM (3.8-5.5); Red Cell Distribution Width 17.6 % (9.3-17.3); White Blood Count 8.1 T/CUMM (4-12)
[2021-06-20 06:01] LABS: INR 1.6; PT Patient Result 16.9 SECS (10.5-12.0)
[2021-06-20 06:11] LABS: Albumin 2.5 G/DL (3.4-5.0); Calcium 9.3 MG/DL (8.5-10.1); Osmolality,Calculated 289.3 MOS/KG (273-304); Potassium 3.6 MMOL/L (3.5-5.1); Total Protein 7.1 G/DL (6.4-8.2)
[2021-06-20 06:28] LABS: Hypochromia Slight; Lymphocytes 15 % (20-55); Microcytosis 1+; Platelet Estimate Normal; Segmented Neutrophils 79 % (50-85); Total Cells Counted 100
[2021-06-20 09:08] LABS: INR 1.6; PT Patient Result 16.8 SECS (10.5-12.0)
[2021-06-20] MEDS: FUROSEMIDE 40 MG/4 ML VIAL IV SCH ×2 (10:20→16:05)
[2021-06-20] MEDS: amLODIPine 5 MG TABLET PO SCH (11:45)
[2021-06-20] MEDS: methIMAzole 5 MG TABLET PO SCH ×3 (11:45→21:01)
[2021-06-20] MEDS: METOPROLOL SUCCINATE XL 100 MG TABLET PO SCH (11:45)
[2021-06-20] MEDS: ATORVASTATIN 20 MG TABLET PO SCH (11:45)
[2021-06-20] MEDS: PANTOPRAZOLE 40 MG TABLET PO SCH (11:45)
[2021-06-20] MEDS: ASCORBIC ACID 500 MG TABLET PO SCH ×2 (11:45→21:01)
[2021-06-20] MEDS: INSULIN LISPRO 100 UNIT/ML SUBCUT SCH ×3 (11:46→21:27)
[2021-06-20] MEDS ORDERED: WARFARIN 2.5 MG TABLET PO SCH (18:00)
[2021-06-20] MEDS ORDERED: WARFARIN 5 MG TABLET PO SCH (18:00)
[2021-06-20] MEDS: cefTRIAXone 1,000 MG in SODIUM CHLORIDE 0.9% 100 ML IV SCH (18:19)
[2021-06-20] MEDS: AZITHROMYCIN INJ 250 MG in SODIUM CHLORIDE 0.9% 250 ML IV SCH (21:01)
[2021-06-21] MEDS: ALBUTEROL/IPRATROPIUM 3 ML NEB RESP TX SCH ×4 (00:49→19:30)
[2021-06-21 05:27] LABS: Basophils % 0.3 % (0.0-0.8); Eosinophils % 0.3 % (0.00-10.9); Hematocrit 32.5 VOL% (42.0-52.0); Hemoglobin 10.3 GM/DL (14.0-18.0); Immature Granulocytes % 0.6 %; Immature Granulocytes Absolute 0.06 #; Lymphocytes # 1.1 10*3/uL (1.4-4.0); Lymphocytes % 11.2 % (21.2-54.2); Mean Corpuscular HGB Conc 31.7 GM/DL (32-36); Mean Corpuscular Volume 71.9 FL (87-102); Mean Platelet Volume 10.2 FL (9.6-12.0); Monocytes % 12.4 % (1.7-12.7); Neutrophils % 75.2 % (38.7-73.9); Platelet Count 290 T/CUMM (130-400); Red Blood Count 4.52 MC/CUMM (3.8-5.5); White Blood Count 9.7 T/CUMM (4-12)
[2021-06-21 05:43] LABS: INR 1.5; PT Patient Result 16.1 SECS (10.5-12.0)
[2021-06-21 05:49] LABS: Albumin 2.4 G/DL (3.4-5.0); Calcium 9.2 MG/DL (8.5-10.1); Osmolality,Calculated 295.3 MOS/KG (273-304); Potassium 4.1 MMOL/L (3.5-5.1); Total Protein 7.2 G/DL (6.4-8.2)
[2021-06-21] MEDS: ASCORBIC ACID 500 MG TABLET PO SCH ×2 (09:12→21:13)
[2021-06-21] MEDS: METOPROLOL SUCCINATE XL 100 MG TABLET PO SCH (09:13)
[2021-06-21] MEDS: amLODIPine 5 MG TABLET PO SCH (09:13)
[2021-06-21] MEDS: PANTOPRAZOLE 40 MG TABLET PO SCH (09:13)
[2021-06-21] MEDS: methIMAzole 5 MG TABLET PO SCH ×3 (09:13→21:13)
[2021-06-21] MEDS: ATORVASTATIN 20 MG TABLET PO SCH (09:14)
[2021-06-21] MEDS: INSULIN LISPRO 100 UNIT/ML SUBCUT SCH ×4 (09:14→21:24)
[2021-06-21] MEDS: FUROSEMIDE 40 MG/4 ML VIAL IV SCH ×2 (09:15→17:06)
[2021-06-21] MEDS: WARFARIN 5 MG TABLET PO SCH (17:06)
[2021-06-21] MEDS: cefTRIAXone 1,000 MG in SODIUM CHLORIDE 0.9% 100 ML IV SCH (17:17)
[2021-06-21] MEDS: ACETAMINOPHEN 325 MG TABLET PO PRN (21:13)
[2021-06-21] MEDS: AZITHROMYCIN INJ 250 MG in SODIUM CHLORIDE 0.9% 250 ML IV SCH (21:24)
[2021-06-22] MEDS: ALBUTEROL/IPRATROPIUM 3 ML NEB RESP TX SCH ×4 (00:46→19:35)
[2021-06-22 06:55] LABS: Basophils % 0.3 % (0.0-0.8); Eosinophils % 0.4 % (0.00-10.9); Hematocrit 33.5 VOL% (42.0-52.0); Hemoglobin 10.7 GM/DL (14.0-18.0); Immature Granulocytes % 0.5 %; Immature Granulocytes Absolute 0.05 #; Lymphocytes # 0.9 10*3/uL (1.4-4.0); Lymphocytes % 9.8 % (21.2-54.2); Mean Corpuscular HGB Conc 31.9 GM/DL (32-36); Mean Corpuscular Volume 72.2 FL (87-102); Mean Platelet Volume 11.1 FL (9.6-12.0); Monocytes % 10.8 % (1.7-12.7); Neutrophils % 78.2 % (38.7-73.9); Platelet Count 252 T/CUMM (130-400); Red Blood Count 4.64 MC/CUMM (3.8-5.5); Red Cell Distribution Width 18.5 % (9.3-17.3); White Blood Count 9.6 T/CUMM (4-12)
[2021-06-22 07:03] LABS: INR 1.8; PT Patient Result 18.8 SECS (10.5-12.0)
[2021-06-22 07:10] LABS: Calcium 9.9 MG/DL (8.5-10.1); Osmolality,Calculated 308.4 MOS/KG (273-304); Potassium 3.9 MMOL/L (3.5-5.1)
[2021-06-22 07:13] LABS: Albumin 2.4 G/DL (3.4-5.0); Bilirubin,Total 1.1 MG/DL (0.20-1.00); Calcium 9.4 MG/DL (8.5-10.1); Osmolality,Calculated 312.1 MOS/KG (273-304); Potassium 3.8 MMOL/L (3.5-5.1); Total Protein 7.6 G/DL (6.4-8.2)
[2021-06-22 07:14] LABS: Hypochromia 2+; Microcytosis 2+; Target Cells Few
[2021-06-22 07:15] LABS: Platelet Estimate Normal
[2021-06-22] MEDS: ATORVASTATIN 20 MG TABLET PO SCH (09:06)
[2021-06-22] MEDS: amLODIPine 5 MG TABLET PO SCH (09:06)
[2021-06-22] MEDS: INSULIN LISPRO 100 UNIT/ML SUBCUT SCH ×4 (09:06→20:52)
[2021-06-22] MEDS: methIMAzole 5 MG TABLET PO SCH ×3 (09:06→20:54)
[2021-06-22] MEDS: ASCORBIC ACID 500 MG TABLET PO SCH ×2 (09:06→20:54)
[2021-06-22] MEDS: PANTOPRAZOLE 40 MG TABLET PO SCH (09:06)
[2021-06-22] MEDS: METOPROLOL SUCCINATE XL 100 MG TABLET PO SCH (09:07)
[2021-06-22] MEDS: DOCUSATE SODIUM 100 MG CAPSULE PO SCH ×2 (09:23→20:54)
[2021-06-22] MEDS: FUROSEMIDE 40 MG/4 ML VIAL IV SCH (09:24)
[2021-06-22] MEDS ORDERED: FUROSEMIDE 40 MG/4 ML VIAL IV SCH (16:00)
[2021-06-22] MEDS: WARFARIN 5 MG TABLET PO SCH (17:38)
[2021-06-22] MEDS: cefTRIAXone 1,000 MG in SODIUM CHLORIDE 0.9% 100 ML IV SCH (17:39)
[2021-06-22] MEDS: AZITHROMYCIN INJ 250 MG in SODIUM CHLORIDE 0.9% 250 ML IV SCH (20:54)
[2021-06-23] MEDS: ALBUTEROL/IPRATROPIUM 3 ML NEB RESP TX SCH ×4 (01:05→19:40)
[2021-06-23 07:14] LABS: Basophils % 0.3 % (0.0-0.8); Eosinophils % 0.2 % (0.00-10.9); Hematocrit 34.1 VOL% (42.0-52.0); Hemoglobin 10.7 GM/DL (14.0-18.0); Immature Granulocytes % 0.4 %; Immature Granulocytes Absolute 0.04 #; Lymphocytes # 1.2 10*3/uL (1.4-4.0); Lymphocytes % 11.1 % (21.2-54.2); Mean Corpuscular HGB Conc 31.4 GM/DL (32-36); Mean Corpuscular Volume 72.2 FL (87-102); Mean Platelet Volume 10.6 FL (9.6-12.0); Monocytes % 11.7 % (1.7-12.7); Neutrophils % 76.3 % (38.7-73.9); Platelet Count 330 T/CUMM (130-400); Red Blood Count 4.72 MC/CUMM (3.8-5.5); Red Cell Distribution Width 18.5 % (9.3-17.3); White Blood Count 10.5 T/CUMM (4-12)
[2021-06-23 07:20] LABS: INR 2.2; PT Patient Result 23.6 SECS (10.5-12.0)
[2021-06-23 07:36] LABS: Albumin 2.4 G/DL (3.4-5.0); Bilirubin,Total 0.8 MG/DL (0.20-1.00); Osmolality,Calculated 324.2 MOS/KG (273-304); Potassium 3.7 MMOL/L (3.5-5.1); Total Protein 7.6 G/DL (6.4-8.2)
[2021-06-23] MEDS ORDERED: FUROSEMIDE 40 MG/4 ML VIAL IV SCH (09:00)
[2021-06-23] MEDS ORDERED: FUROSEMIDE 40 MG TABLET PO SCH (09:00)
[2021-06-23] MEDS ORDERED: BISACODYL 5 MG TABLET PO ONE (10:30)
[2021-06-23 10:55] LABS: Lactic Acid 2.1 MMOL/L (0.4-2.0)
[2021-06-23] MEDS: DOCUSATE SODIUM 100 MG CAPSULE PO SCH ×2 (11:14→22:38)
[2021-06-23] MEDS: METOPROLOL SUCCINATE XL 100 MG TABLET PO SCH (11:15)
[2021-06-23] MEDS: ATORVASTATIN 20 MG TABLET PO SCH (11:15)
[2021-06-23] MEDS: PANTOPRAZOLE 40 MG TABLET PO SCH (11:15)
[2021-06-23] MEDS: amLODIPine 5 MG TABLET PO SCH (11:15)
[2021-06-23] MEDS: INSULIN LISPRO 100 UNIT/ML SUBCUT SCH ×4 (11:16→22:38)
[2021-06-23] MEDS: methIMAzole 5 MG TABLET PO SCH ×3 (11:16→22:39)
[2021-06-23] MEDS: ASCORBIC ACID 500 MG TABLET PO SCH ×2 (11:16→22:39)
[2021-06-23] MEDS: DEXTROSE 5% 1,000 ML IV SCH (11:41)
[2021-06-23] MEDS: ACETAMINOPHEN 650 MG SUPP RECTAL PRN (15:49)
[2021-06-23] MEDS: WARFARIN 5 MG TABLET PO SCH (17:23)
[2021-06-23] MEDS: cefTRIAXone 1,000 MG in SODIUM CHLORIDE 0.9% 100 ML IV SCH (17:24)
[2021-06-24] MEDS: ACETAMINOPHEN 650 MG SUPP RECTAL PRN (00:02)
[2021-06-24] MEDS: ALBUTEROL/IPRATROPIUM 3 ML NEB RESP TX SCH ×4 (01:15→12:04)
[2021-06-24] MEDS ORDERED: METOPROLOL TARTRATE 5 MG/5 ML VIAL IV ONE ×3 (01:37→20:06)
[2021-06-24] MEDS ORDERED: ACETAMINOPHEN 650 MG SUPP RECTAL PRN (04:52)
[2021-06-24] MEDS: PIPERACILLIN/TAZOBACTAM 3,375 MG in SODIUM CHLORIDE 0.9% 100 ML IV SCH ×3 (05:07→21:00)
[2021-06-24 05:48] LABS: Basophils % 0.2 % (0.0-0.8); Hematocrit 36.4 VOL% (42.0-52.0); Immature Granulocytes % 0.6 %; Immature Granulocytes Absolute 0.11 #; Lymphocytes # 1.2 10*3/uL (1.4-4.0); Lymphocytes % 6.8 % (21.2-54.2); Mean Corpuscular HGB Conc 30.2 GM/DL (32-36); Mean Corpuscular Volume 74.7 FL (87-102); Mean Platelet Volume 11.1 FL (9.6-12.0); Monocytes % 10.1 % (1.7-12.7); Neutrophils % 82.3 % (38.7-73.9); Platelet Count 298 T/CUMM (130-400); Red Blood Count 4.87 MC/CUMM (3.8-5.5); Red Cell Distribution Width 18.7 % (9.3-17.3); White Blood Count 17.7 T/CUMM (4-12)
[2021-06-24 06:08] LABS: Albumin 2.3 G/DL (3.4-5.0); Bilirubin,Total 0.9 MG/DL (0.20-1.00); Calcium 9.9 MG/DL (8.5-10.1); Osmolality,Calculated 330.9 MOS/KG (273-304); Potassium 4.1 MMOL/L (3.5-5.1); Total Protein 7.6 G/DL (6.4-8.2)
[2021-06-24 06:52] LABS: INR 2.6; PT Patient Result 27.1 SECS (10.5-12.0)
[2021-06-24] MEDS: DEXTROSE 5% 1,000 ML IV SCH ×2 (08:22→18:53)
[2021-06-24] MEDS: DOCUSATE SODIUM 100 MG CAPSULE PO SCH (10:03)
[2021-06-24] MEDS: ATORVASTATIN 20 MG TABLET PO SCH (10:04)
[2021-06-24] MEDS: ASCORBIC ACID 500 MG TABLET PO SCH ×2 (10:04→20:59)
[2021-06-24] MEDS: PANTOPRAZOLE 40 MG TABLET PO SCH (10:04)
[2021-06-24] MEDS: METOPROLOL SUCCINATE XL 100 MG TABLET PO SCH (10:04)
[2021-06-24] MEDS: methIMAzole 5 MG TABLET PO SCH ×3 (10:04→21:00)
[2021-06-24] MEDS: amLODIPine 5 MG TABLET PO SCH (10:04)
[2021-06-24] MEDS: INSULIN LISPRO 100 UNIT/ML SUBCUT SCH ×3 (10:11→17:03)
[2021-06-24] MEDS: VANCOMYCIN INJ 1,000 MG in SODIUM CHLORIDE 0.9% 250 ML IV SCH ×2 (10:11→21:01)
[2021-06-24] MEDS: ENOXAPARIN 60 MG/0.6 ML SYRINGE SUBCUT SCH ×2 (10:32→21:10)
[2021-06-24 10:53] LABS: Arterial Base Excess iSTAT 0 MMOL/L (-2.5-2.5); Arterial Bicarbonate iSTAT 23.9 MMOL/L (20-26); Arterial O2 Saturation iSTAT 95 % (95-100); Arterial PCO2 iSTAT 34 MM HG (35-48); Arterial PO2 iSTAT 71 MM HG (80-95); Arterial Total CO2 iSTAT 25 MMO/L (23-27)
[2021-06-24] MEDS ORDERED: ALBUTEROL/IPRATROPIUM 3 ML NEB RESP TX PRN (13:28)
[2021-06-24] MEDS: ACETAMINOPHEN 325 MG TABLET PO PRN ×2 (16:15→22:12)
[2021-06-24] MEDS ORDERED: METOPROLOL TARTRATE 5 MG/5 ML VIAL IV PRN (20:08)
[2021-06-24] MEDS ORDERED: METOPROLOL TARTRATE 50 MG TABLET PO ONE (20:34)
[2021-06-24 21:15] LABS: Arterial Base Excess iSTAT -1 MMOL/L (-2.5-2.5); Arterial Bicarbonate iSTAT 21.8 MMOL/L (20-26); Arterial O2 Saturation iSTAT 96 % (95-100); Arterial PCO2 iSTAT 31 MM HG (35-48); Arterial PO2 iSTAT 77 MM HG (80-95); Arterial Total CO2 iSTAT 23 MMO/L (23-27)
[2021-06-25] MEDS: DOCUSATE SODIUM 100 MG CAPSULE PO SCH ×2 (00:31→11:08)
[2021-06-25] MEDS: INSULIN LISPRO 100 UNIT/ML SUBCUT SCH ×5 (00:31→21:09)
[2021-06-25] MEDS: ACETAMINOPHEN 325 MG TABLET PO PRN (05:07)
[2021-06-25] MEDS: PIPERACILLIN/TAZOBACTAM 3,375 MG in SODIUM CHLORIDE 0.9% 100 ML IV SCH ×3 (05:08→21:16)
[2021-06-25 06:04] LABS: Basophils # 0.1 10*3/uL (0.0-0.2); Basophils % 0.2 % (0.0-0.8); Hematocrit 33.9 VOL% (42.0-52.0); Hemoglobin 10.4 GM/DL (14.0-18.0); Immature Granulocytes % 0.9 %; Immature Granulocytes Absolute 0.19 #; Lymphocytes # 1.4 10*3/uL (1.4-4.0); Lymphocytes % 6.8 % (21.2-54.2); Mean Corpuscular HGB Conc 30.7 GM/DL (32-36); Mean Platelet Volume 11.7 FL (9.6-12.0); Monocytes % 6.3 % (1.7-12.7); Neutrophils % 85.8 % (38.7-73.9); Platelet Count 297 T/CUMM (130-400); Red Blood Count 4.58 MC/CUMM (3.8-5.5); Red Cell Distribution Width 18.7 % (9.3-17.3); White Blood Count 20.3 T/CUMM (4-12)
[2021-06-25 06:28] LABS: Band Neutrophils 2 % (0-10); Hypochromia Slight; Lymphocytes 9 % (20-55); Microcytosis Slight; Platelet Estimate Adequate; Segmented Neutrophils 85 % (50-85); Total Cells Counted 100
[2021-06-25 06:32] LABS: Calcium 9.3 MG/DL (8.5-10.1); Osmolality,Calculated 332.9 MOS/KG (273-304); Potassium 4.1 MMOL/L (3.5-5.1)
[2021-06-25] MEDS: DEXTROSE 5% 1,000 ML IV SCH ×3 (08:01→16:42)
[2021-06-25 08:42] LABS: Arterial Base Excess iSTAT -1 MMOL/L (-2.5-2.5); Arterial Bicarbonate iSTAT 21.3 MMOL/L (20-26); Arterial O2 Saturation iSTAT 97 % (95-100); Arterial PCO2 iSTAT 29 MM HG (35-48); Arterial PO2 iSTAT 86 MM HG (80-95); Arterial Total CO2 iSTAT 22 MMO/L (23-27); Arterial pH iSTAT 7.479 (7.35-7.45)
[2021-06-25] MEDS ORDERED: VANCOMYCIN INJ 1,000 MG in SODIUM CHLORIDE 0.9% 250 ML IV PRN (09:40)
[2021-06-25 09:59] LABS: Ferritin 258.2 ng/mL (26-388)
[2021-06-25] MEDS: methIMAzole 5 MG TABLET PO SCH ×3 (10:00→21:10)
[2021-06-25] MEDS: DOCUSATE SODIUM 100 MG/10 ML UDCUP NG SCH ×2 (10:00→21:10)
[2021-06-25] MEDS ORDERED: VANCOMYCIN INJ 1,000 MG in SODIUM CHLORIDE 0.9% 250 ML IV ONE (10:00)
[2021-06-25] MEDS: PANTOPRAZOLE 40 MG VIAL IV SCH (10:01)
[2021-06-25] MEDS: ASCORBIC ACID 500 MG TABLET PO SCH ×2 (10:01→21:10)
[2021-06-25] MEDS: METOPROLOL TARTRATE 50 MG TABLET NG SCH ×3 (10:01→21:10)
[2021-06-25] MEDS: ATORVASTATIN 20 MG TABLET PO SCH (10:01)
[2021-06-25] MEDS: amLODIPine 5 MG TABLET PO SCH (10:02)
[2021-06-25] MEDS: ENOXAPARIN 60 MG/0.6 ML SYRINGE SUBCUT SCH ×2 (10:02→21:11)
[2021-06-25] MEDS: METOPROLOL SUCCINATE XL 100 MG TABLET PO SCH (11:08)
[2021-06-26] MEDS: PIPERACILLIN/TAZOBACTAM 3,375 MG in SODIUM CHLORIDE 0.9% 100 ML IV SCH (04:41)
[2021-06-26] MEDS ORDERED: METOPROLOL TARTRATE 5 MG/5 ML VIAL IV ONE ×4 (04:49→11:37)
[2021-06-26 05:52] LABS: INR 1.5; PT Patient Result 16.6 SECS (10.5-12.0)
[2021-06-26 06:04] LABS: Basophils % 0.2 % (0.0-0.8); Hemoglobin 10.6 GM/DL (14.0-18.0); Immature Granulocytes % 0.5 %; Immature Granulocytes Absolute 0.06 #; Lymphocytes # 1.4 10*3/uL (1.4-4.0); Mean Corpuscular HGB Conc 31.2 GM/DL (32-36); Monocytes % 7.2 % (1.7-12.7); NRBC # 0.03 10*3/uL; Neutrophils % 81.1 % (38.7-73.9); Platelet Count 200 T/CUMM (130-400); Red Blood Count 4.66 MC/CUMM (3.8-5.5); Red Cell Distribution Width 18.2 % (9.3-17.3); White Blood Count 12.3 T/CUMM (4-12)
[2021-06-26 06:07] LABS: Calcium 9.6 MG/DL (8.5-10.1); Osmolality,Calculated 325.7 MOS/KG (273-304); Potassium 3.8 MMOL/L (3.5-5.1)
[2021-06-26 06:25] LABS: Albumin 1.6 G/DL (3.4-5.0); Bilirubin,Total 1.1 MG/DL (0.20-1.00); Calcium 9.7 MG/DL (8.5-10.1); Osmolality,Calculated 323.9 MOS/KG (273-304); Potassium 3.8 MMOL/L (3.5-5.1); Total Protein 6.6 G/DL (6.4-8.2)
[2021-06-26 06:29] LABS: Band Neutrophils 1 % (0-10); Hypochromia 1+; Lymphocytes 12 % (20-55); Microcytosis 1+; Platelet Estimate Adequate; Segmented Neutrophils 84 % (50-85); Total Cells Counted 100
[2021-06-26] MEDS: ACETAMINOPHEN 325 MG TABLET PO PRN ×2 (07:25→20:15)
[2021-06-26] MEDS ORDERED: SODIUM CHLORIDE 0.9% 500 ML IV ONE (08:22)
[2021-06-26] MEDS ORDERED: SODIUM CHLORIDE 0.9% 1,000 ML IV ONE (08:30)
[2021-06-26] MEDS ORDERED: DILTIAZEM 25 MG/5 ML VIAL IV ONE (08:41)
[2021-06-26] MEDS ORDERED: DILTIAZEM 50 MG/10 ML VIAL IV ONE (08:42)
[2021-06-26 09:00] LABS: Basophils % 0.3 % (0.0-0.8); Hematocrit 34.6 VOL% (42.0-52.0); Hemoglobin 10.8 GM/DL (14.0-18.0); Immature Granulocytes % 0.5 %; Immature Granulocytes Absolute 0.06 #; Lymphocytes # 1.3 10*3/uL (1.4-4.0); Lymphocytes % 11.2 % (21.2-54.2); Mean Corpuscular HGB Conc 31.2 GM/DL (32-36); Mean Corpuscular Volume 73.2 FL (87-102); Monocytes % 5.9 % (1.7-12.7); NRBC # 0.05 10*3/uL; Neutrophils % 82.1 % (38.7-73.9); Platelet Count 203 T/CUMM (130-400); Red Blood Count 4.73 MC/CUMM (3.8-5.5); Red Cell Distribution Width 18.6 % (9.3-17.3); White Blood Count 11.7 T/CUMM (4-12)
[2021-06-26] MEDS: DILTIAZEM INJ 100 MG in SODIUM CHLORIDE 0.9% 100 ML IV SCH ×3 (09:00→22:07)
[2021-06-26 09:08] LABS: Albumin 1.6 G/DL (3.4-5.0); Bilirubin,Total 1.1 MG/DL (0.20-1.00); Calcium 9.5 MG/DL (8.5-10.1); Osmolality,Calculated 325.7 MOS/KG (273-304); Total Protein 6.8 G/DL (6.4-8.2)
[2021-06-26 09:18] LABS: Hypochromia Slight; Lymphocytes 19 % (20-55); Microcytosis Slight; Nucleated Red Blood Cells 1 (0-5); Platelet Estimate Adequate; Segmented Neutrophils 76 % (50-85); Total Cells Counted 100
[2021-06-26 09:35] LABS: Arterial Base Excess iSTAT -3 MMOL/L (-2.5-2.5); Arterial Bicarbonate iSTAT 21.1 MMOL/L (20-26); Arterial O2 Saturation iSTAT 100 % (95-100); Arterial PCO2 iSTAT 32 MM HG (35-48); Arterial PO2 iSTAT 192 MM HG (80-95); Arterial Total CO2 iSTAT 22 MMO/L (23-27); Arterial pH iSTAT 7.429 (7.35-7.45)
[2021-06-26] MEDS: INSULIN LISPRO 100 UNIT/ML SUBCUT SCH ×4 (10:09→20:22)
[2021-06-26] MEDS ORDERED: LACTATED RINGERS 1,000 ML IV ONE ×2 (10:16→12:31)
[2021-06-26] MEDS: DOCUSATE SODIUM 100 MG/10 ML UDCUP NG SCH ×2 (11:17→20:22)
[2021-06-26] MEDS: ENOXAPARIN 60 MG/0.6 ML SYRINGE SUBCUT SCH ×2 (11:17→20:23)
[2021-06-26] MEDS: METOPROLOL TARTRATE 50 MG TABLET NG SCH ×3 (11:18→20:23)
[2021-06-26] MEDS: ATORVASTATIN 20 MG TABLET PO SCH (11:18)
[2021-06-26] MEDS: PANTOPRAZOLE 40 MG VIAL IV SCH (11:18)
[2021-06-26] MEDS: methIMAzole 5 MG TABLET PO SCH ×3 (11:18→20:23)
[2021-06-26] MEDS: ASCORBIC ACID 500 MG TABLET PO SCH ×2 (11:18→20:23)
[2021-06-26] MEDS: MEROPENEM 500 MG in SODIUM CHLORIDE 0.9% 100 ML IV SCH ×2 (11:20→16:39)
[2021-06-26] MEDS: MULTIVITAMIN LIQUID (CENTRUM) 60 ML BOTTLE PER TUBE SCH (11:37)
[2021-06-26] MEDS ORDERED: LACTATED RINGERS 250 ML IV ONE (11:41)
[2021-06-26] MEDS: amLODIPine 5 MG TABLET PO SCH (11:52)
[2021-06-26] MEDS ORDERED: VANCOMYCIN INJ 1,000 MG in SODIUM CHLORIDE 0.9% 250 ML IV ONE (12:00)
[2021-06-26] MEDS: HYDROCORTISONE 100 MG VIAL IV SCH ×2 (14:42→20:22)
[2021-06-26] MEDS: DEXTROSE 5% 1,000 ML IV SCH ×2 (14:46→23:05)
[2021-06-26] MEDS ORDERED: AMIODARONE INJ 150 MG in DEXTROSE 5% 100 ML IV ONE (17:02)
[2021-06-26] MEDS ORDERED: AMIODARONE 150 MG/3 ML VIAL ONE (17:08)
[2021-06-26] MEDS ORDERED: AMIODARONE INJ 450 MG in DEXTROSE 5% 241 ML IV SCH (17:30)
[2021-06-26] MEDS ORDERED: ALBUMIN 5% 25 GM/500 ML VIAL IV ONE (19:06)
[2021-06-26] MEDS ORDERED: ALBUMIN 5% 25.0 GM/500 ML VIAL IV ONE (19:07)
[2021-06-27] MEDS ORDERED: AMIODARONE INJ 450 MG in DEXTROSE 5% 241 ML IV SCH
[2021-06-27] MEDS: MEROPENEM 500 MG in SODIUM CHLORIDE 0.9% 100 ML IV SCH ×3 (00:15→18:29)
[2021-06-27] MEDS: HYDROCORTISONE 100 MG VIAL IV SCH ×2 (03:32→17:47)
[2021-06-27 03:39] LABS: Basophils % 0.2 % (0.0-0.8); Hematocrit 29.3 VOL% (42.0-52.0); Hemoglobin 8.9 GM/DL (14.0-18.0); Immature Granulocytes % 0.5 %; Immature Granulocytes Absolute 0.05 #; Lymphocytes # 0.8 10*3/uL (1.4-4.0); Lymphocytes % 7.3 % (21.2-54.2); Mean Corpuscular HGB Conc 30.4 GM/DL (32-36); Mean Corpuscular Volume 73.6 FL (87-102); Platelet Count 155 T/CUMM (130-400); Red Blood Count 3.98 MC/CUMM (3.8-5.5); Red Cell Distribution Width 18.3 % (9.3-17.3); White Blood Count 10.5 T/CUMM (4-12)
[2021-06-27 03:54] LABS: Albumin 1.9 G/DL (3.4-5.0); Bilirubin,Total 0.8 MG/DL (0.20-1.00); Calcium 8.9 MG/DL (8.5-10.1); Potassium 4.1 MMOL/L (3.5-5.1); Total Protein 6.3 G/DL (6.4-8.2)
[2021-06-27 03:57] LABS: INR 1.6; PT Patient Result 17.6 SECS (10.5-12.0)
[2021-06-27] MEDS: INSULIN LISPRO 100 UNIT/ML SUBCUT SCH ×5 (04:30→21:34)
[2021-06-27 04:40] LABS: Band Neutrophils 2 % (0-10); Hypochromia 1+; Lymphocytes 6 % (20-55); Microcytosis 1+; Segmented Neutrophils 90 % (50-85); Total Cells Counted 100
[2021-06-27 04:41] LABS: Acanthocytes Few; Burr Cells Slight; Platelet Estimate Adequate; Target Cells Few
[2021-06-27] MEDS: DEXTROSE 5% 1,000 ML IV SCH ×2 (06:11→11:12)
[2021-06-27] MEDS ORDERED: PROMETHAZINE INJ 12.5 MG in SODIUM CHLORIDE 0.9% 50 ML IV PRN (08:22)
[2021-06-27] MEDS: DILTIAZEM INJ 100 MG in SODIUM CHLORIDE 0.9% 100 ML IV SCH ×3 (09:33→18:01)
[2021-06-27] MEDS: ENOXAPARIN 60 MG/0.6 ML SYRINGE SUBCUT SCH ×2 (09:34→20:28)
[2021-06-27] MEDS: PANTOPRAZOLE 40 MG VIAL IV SCH (09:34)
[2021-06-27] MEDS: METOPROLOL TARTRATE 25 MG TABLET NG SCH ×2 (09:35→17:47)
[2021-06-27] MEDS: ASCORBIC ACID 500 MG TABLET PO SCH ×2 (09:35→20:28)
[2021-06-27] MEDS: ATORVASTATIN 20 MG TABLET PO SCH (09:35)
[2021-06-27] MEDS: MULTIVITAMIN LIQUID (CENTRUM) 60 ML BOTTLE PER TUBE SCH (09:43)
[2021-06-27] MEDS ORDERED: METOPROLOL TARTRATE 5 MG/5 ML VIAL IV ONE (11:07)
[2021-06-27] MEDS: DOCUSATE SODIUM 100 MG/10 ML UDCUP NG SCH ×2 (11:08→20:29)
[2021-06-27] MEDS: methIMAzole 5 MG TABLET PO SCH ×3 (11:51→20:27)
[2021-06-27] MEDS ORDERED: PHENYLEPHRINE DRIP 40 MG/250 ML PREMIX IV PRN (12:19)
[2021-06-27] MEDS: methylPREDNISolone SOD SUC 40 MG/1 ML VIAL IV SCH ×2 (12:39→20:28)
[2021-06-27] MEDS: ALBUTEROL/IPRATROPIUM 3 ML NEB RESP TX SCH ×4 (12:50→23:13)
[2021-06-27 14:37] LABS: ABG Base Excess -3.8 MMOL/L (-2.5-2.5); ABG HCO3 21.3 MMOL/L (20-26); ABG Oxygen Saturation 99.2 % (95-100); ABG PCO2 32.6 MM HG (35-48); ABG PH 7.402 (7.35-7.45); ABG TCO2 18.6 MMOL/L (23-27); Allen Test Positive; Pt O2 Delivery Device BIPAP
[2021-06-27] MEDS ORDERED: MIDAZOLAM 2 MG/2 ML VIAL ONE (14:39)
[2021-06-27] MEDS ORDERED: METOPROLOL TARTRATE 25 MG TABLET PO SCH (15:00)
[2021-06-27] MEDS: SODIUM CHLORIDE 0.45% 1,000 ML IV SCH (15:11)
[2021-06-27] MEDS: AMIODARONE INJ 450 MG in DEXTROSE 5% 241 ML IV SCH (18:27)
[2021-06-27] MEDS: WARFARIN 5 MG TABLET PO SCH (18:35)
[2021-06-27] MEDS: ACETAMINOPHEN 325 MG TABLET PO PRN (20:36)
[2021-06-28] MEDS: INSULIN LISPRO 100 UNIT/ML SUBCUT SCH ×7 (00:32→23:38)
[2021-06-28] MEDS: MEROPENEM 500 MG in SODIUM CHLORIDE 0.9% 100 ML IV SCH ×3 (00:32→16:32)
[2021-06-28] MEDS: ALBUTEROL/IPRATROPIUM 3 ML NEB RESP TX SCH ×5 (02:57→19:27)
[2021-06-28 05:09] LABS: Basophils % 0.1 % (0.0-0.8); Hematocrit 29.4 VOL% (42.0-52.0); Hemoglobin 9.3 GM/DL (14.0-18.0); Immature Granulocytes % 0.6 %; Lymphocytes # 0.8 10*3/uL (1.4-4.0); Lymphocytes % 4.8 % (21.2-54.2); Mean Corpuscular HGB Conc 31.6 GM/DL (32-36); Mean Corpuscular Volume 71.2 FL (87-102); Monocytes % 2.9 % (1.7-12.7); NRBC # 0.04 10*3/uL; Neutrophils % 91.6 % (38.7-73.9); Platelet Count 177 T/CUMM (130-400); Red Blood Count 4.13 MC/CUMM (3.8-5.5); Red Cell Distribution Width 17.8 % (9.3-17.3)
[2021-06-28 05:12] LABS: White Blood Count 16.7 T/CUMM (4-12)
[2021-06-28 05:21] LABS: INR 1.7; PT Patient Result 18.6 SECS (10.5-12.0)
[2021-06-28] MEDS: methylPREDNISolone SOD SUC 40 MG/1 ML VIAL IV SCH ×3 (05:25→20:53)
[2021-06-28 05:28] LABS: Albumin 1.8 G/DL (3.4-5.0); Bilirubin,Total 0.6 MG/DL (0.20-1.00); Calcium 9.3 MG/DL (8.5-10.1); Osmolality,Calculated 315.8 MOS/KG (273-304); Potassium 3.4 MMOL/L (3.5-5.1); Total Protein 6.8 G/DL (6.4-8.2)
[2021-06-28 05:41] LABS: Band Neutrophils 1 % (0-10); Lymphocytes 8 % (20-55); Segmented Neutrophils 89 % (50-85); Total Cells Counted 100
[2021-06-28 05:42] LABS: Hypochromia 1+; Microcytosis 1+; Target Cells Slight
[2021-06-28 05:43] LABS: Burr Cells Few; Platelet Estimate Adequate
[2021-06-28] MEDS: AMIODARONE INJ 450 MG in DEXTROSE 5% 241 ML IV SCH (07:00)
[2021-06-28] MEDS ORDERED: POTASSIUM CHLORIDE 20 MEQ TABLET PO ONE ×2 (07:13→09:00)
[2021-06-28] MEDS: ASCORBIC ACID 500 MG TABLET PO SCH ×2 (08:32→20:54)
[2021-06-28] MEDS: PANTOPRAZOLE 40 MG VIAL IV SCH (08:32)
[2021-06-28] MEDS: ENOXAPARIN 60 MG/0.6 ML SYRINGE SUBCUT SCH ×2 (08:32→20:49)
[2021-06-28] MEDS: ATORVASTATIN 20 MG TABLET PO SCH (08:33)
[2021-06-28] MEDS: AMIODARONE 200 MG TABLET PO SCH ×2 (08:33→20:54)
[2021-06-28] MEDS: DOCUSATE SODIUM 100 MG/10 ML UDCUP NG SCH ×2 (08:33→20:53)
[2021-06-28] MEDS: methIMAzole 5 MG TABLET PO SCH ×3 (08:33→20:53)
[2021-06-28] MEDS: MULTIVITAMIN LIQUID (CENTRUM) 60 ML BOTTLE PER TUBE SCH (08:34)
[2021-06-28] MEDS: DILTIAZEM INJ 100 MG in SODIUM CHLORIDE 0.9% 100 ML IV SCH ×3 (08:44→16:49)
[2021-06-28] MEDS: SODIUM CHLORIDE 0.45% 1,000 ML IV SCH ×2 (11:28→16:35)
[2021-06-28] MEDS ORDERED: VANCOMYCIN INJ 1,000 MG in SODIUM CHLORIDE 0.9% 250 ML IV ONE (12:00)
[2021-06-28] MEDS: WARFARIN 5 MG TABLET PO SCH (18:25)
[2021-06-29] MEDS: MEROPENEM 500 MG in SODIUM CHLORIDE 0.9% 100 ML IV SCH ×3 (02:12→17:10)
[2021-06-29] MEDS: ALBUTEROL/IPRATROPIUM 3 ML NEB RESP TX SCH ×6 (03:19→19:30)
[2021-06-29] MEDS: INSULIN LISPRO 100 UNIT/ML SUBCUT SCH ×5 (04:20→21:06)
[2021-06-29] MEDS: methylPREDNISolone SOD SUC 40 MG/1 ML VIAL IV SCH ×3 (04:22→21:06)
[2021-06-29 04:26] LABS: Basophils % 0.1 % (0.0-0.8); Hematocrit 26.4 VOL% (42.0-52.0); Hemoglobin 8.6 GM/DL (14.0-18.0); Immature Granulocytes % 1.1 %; Immature Granulocytes Absolute 0.19 #; Lymphocytes # 0.6 10*3/uL (1.4-4.0); Lymphocytes % 3.8 % (21.2-54.2); Mean Corpuscular HGB Conc 32.6 GM/DL (32-36); Mean Corpuscular Volume 68.9 FL (87-102); NRBC # 0.09 10*3/uL; Platelet Count 190 T/CUMM (130-400); Red Blood Count 3.83 MC/CUMM (3.8-5.5); Red Cell Distribution Width 17.8 % (9.3-17.3); White Blood Count 16.7 T/CUMM (4-12)
[2021-06-29 04:36] LABS: INR 1.9; PT Patient Result 20.3 SECS (10.5-12.0)
[2021-06-29 04:44] LABS: Calcium 8.6 MG/DL (8.5-10.1); Osmolality,Calculated 319.8 MOS/KG (273-304); Potassium 3.9 MMOL/L (3.5-5.1)
[2021-06-29 04:48] LABS: Hypochromia 2+; Lymphocytes 2 % (20-55); Myelocytes 1 %; Segmented Neutrophils 94 % (50-85); Total Cells Counted 100
[2021-06-29 04:49] LABS: Acanthocytes Few; Burr Cells Slight; Microcytosis 1+; Target Cells Slight
[2021-06-29 04:50] LABS: Platelet Estimate Adequate
[2021-06-29] MEDS: SODIUM CHLORIDE 0.45% 1,000 ML IV SCH (05:48)
[2021-06-29] MEDS ORDERED: PROMETHAZINE 25 MG/1 ML VIAL IM ONE (07:00)
[2021-06-29] MEDS ORDERED: MEPERIDINE 50 MG/1 ML VIAL IM ONE (07:00)
[2021-06-29] MEDS ORDERED: LIDOCAINE 1% 20 ML VIAL MISC INJ ONE (07:30)
[2021-06-29] MEDS ORDERED: MIDAZOLAM 2 MG/2 ML VIAL IV ONE (07:30)
[2021-06-29] MEDS ORDERED: LIDOCAINE 2% 20 ML VIAL RESP TX ONE (07:30)
[2021-06-29] MEDS ORDERED: LIDOCAINE 2% VISCOUS 100 ML BOTTLE SWISH/SPIT ONE (07:30)
[2021-06-29] MEDS: PANTOPRAZOLE 40 MG VIAL IV SCH (08:16)
[2021-06-29] MEDS: ATORVASTATIN 20 MG TABLET PO SCH (10:21)
[2021-06-29] MEDS: AMIODARONE 200 MG TABLET PO SCH ×2 (10:21→21:05)
[2021-06-29] MEDS: DOCUSATE SODIUM 100 MG/10 ML UDCUP NG SCH (10:21)
[2021-06-29] MEDS: ASCORBIC ACID 500 MG TABLET PO SCH ×2 (10:22→21:05)
[2021-06-29] MEDS: methIMAzole 5 MG TABLET PO SCH ×3 (10:22→21:05)
[2021-06-29] MEDS: ENOXAPARIN 60 MG/0.6 ML SYRINGE SUBCUT SCH ×2 (10:23→21:05)
[2021-06-29] MEDS: MULTIVITAMIN LIQUID (CENTRUM) 60 ML BOTTLE PER TUBE SCH (10:23)
[2021-06-29] MEDS: WARFARIN 5 MG TABLET PO SCH (17:10)
[2021-06-29] MEDS: DILTIAZEM INJ 100 MG in SODIUM CHLORIDE 0.9% 100 ML IV SCH (23:55)
[2021-06-30] MEDS: ALBUTEROL/IPRATROPIUM 3 ML NEB RESP TX SCH ×4 (01:10→10:26)
[2021-06-30] MEDS: MEROPENEM 500 MG in SODIUM CHLORIDE 0.9% 100 ML IV SCH ×3 (01:24→17:10)
[2021-06-30] MEDS: METOPROLOL TARTRATE 5 MG/5 ML VIAL IV SCH ×3 (01:24→01:53)
[2021-06-30] MEDS: INSULIN LISPRO 100 UNIT/ML SUBCUT SCH ×6 (04:57→22:14)
[2021-06-30] MEDS: DOCUSATE SODIUM 100 MG/10 ML UDCUP NG SCH ×3 (04:58→22:15)
[2021-06-30 05:14] LABS: Basophils % 0.2 % (0.0-0.8); Hematocrit 28.9 VOL% (42.0-52.0); Hemoglobin 9.3 GM/DL (14.0-18.0); Immature Granulocytes % 2.2 %; Immature Granulocytes Absolute 0.37 #; Lymphocytes # 0.7 10*3/uL (1.4-4.0); Lymphocytes % 4.1 % (21.2-54.2); Mean Corpuscular HGB Conc 32.2 GM/DL (32-36); Mean Corpuscular Volume 70.8 FL (87-102); Monocytes % 4.6 % (1.7-12.7); NRBC # 0.14 10*3/uL; Neutrophils % 88.9 % (38.7-73.9); Platelet Count 273 T/CUMM (130-400); Red Blood Count 4.08 MC/CUMM (3.8-5.5); Red Cell Distribution Width 17.8 % (9.3-17.3); White Blood Count 16.5 T/CUMM (4-12)
[2021-06-30] MEDS: methylPREDNISolone SOD SUC 40 MG/1 ML VIAL IV SCH ×3 (05:21→22:15)
[2021-06-30 05:24] LABS: INR 3.2
[2021-06-30 05:26] LABS: PT Patient Result 32.9 SECS (10.5-12.0)
[2021-06-30 05:27] LABS: Calcium 8.8 MG/DL (8.5-10.1); Osmolality,Calculated 324.7 MOS/KG (273-304); Potassium 4.3 MMOL/L (3.5-5.1)
[2021-06-30 05:38] LABS: Band Neutrophils 1 % (0-10); Hypochromia 1+; Lymphocytes 1 % (20-55); Microcytosis 1+; Segmented Neutrophils 93 % (50-85); Target Cells Slight; Total Cells Counted 100
[2021-06-30 05:39] LABS: Ovalocytes Slight; Platelet Estimate Normal
[2021-06-30] MEDS: SODIUM CHLORIDE 0.45% 1,000 ML IV SCH ×2 (05:40→16:14)
[2021-06-30] MEDS ORDERED: DILTIAZEM 50 MG/10 ML VIAL IV ONE (08:25)
[2021-06-30] MEDS: AMIODARONE 200 MG TABLET PO SCH ×2 (09:35→22:15)
[2021-06-30] MEDS: ATORVASTATIN 20 MG TABLET PO SCH (09:35)
[2021-06-30] MEDS: ASCORBIC ACID 500 MG TABLET PO SCH ×2 (09:35→22:15)
[2021-06-30] MEDS: MULTIVITAMIN LIQUID (CENTRUM) 60 ML BOTTLE PER TUBE SCH (09:36)
[2021-06-30] MEDS: methIMAzole 5 MG TABLET PO SCH ×3 (09:37→22:15)
[2021-06-30] MEDS: PANTOPRAZOLE 40 MG VIAL IV SCH (09:50)
[2021-06-30] MEDS: DILTIAZEM INJ 100 MG in SODIUM CHLORIDE 0.9% 100 ML IV SCH ×2 (11:17→17:59)
[2021-06-30] MEDS ORDERED: METOPROLOL SUCCINATE XL 25 MG TABLET PO SCH (11:30)
[2021-06-30] MEDS ORDERED: LEVALBUTEROL 1.25 MG/3 ML NEB RESP TX PRN (13:06)
[2021-06-30] MEDS: WARFARIN 5 MG TABLET PO SCH (17:10)
[2021-07-01] MEDS: DILTIAZEM INJ 100 MG in SODIUM CHLORIDE 0.9% 100 ML IV SCH ×4 (00:02→16:45)
[2021-07-01] MEDS: INSULIN LISPRO 100 UNIT/ML SUBCUT SCH ×6 (00:11→22:23)
[2021-07-01] MEDS: MEROPENEM 500 MG in SODIUM CHLORIDE 0.9% 100 ML IV SCH ×3 (00:12→17:14)
[2021-07-01] MEDS: SODIUM CHLORIDE 0.45% 1,000 ML IV SCH ×3 (00:13→17:34)
[2021-07-01 05:09] LABS: Basophils % 0.1 % (0.0-0.8); Hematocrit 30.4 VOL% (42.0-52.0); Hemoglobin 9.8 GM/DL (14.0-18.0); Immature Granulocytes % 2.5 %; Immature Granulocytes Absolute 0.45 #; Lymphocytes # 0.6 10*3/uL (1.4-4.0); Lymphocytes % 3.1 % (21.2-54.2); Mean Corpuscular HGB Conc 32.2 GM/DL (32-36); Mean Corpuscular Volume 70.4 FL (87-102); Mean Platelet Volume 12.6 FL (9.6-12.0); Monocytes % 5.9 % (1.7-12.7); NRBC # 0.08 10*3/uL; Neutrophils % 88.4 % (38.7-73.9); Platelet Count 354 T/CUMM (130-400); Red Blood Count 4.32 MC/CUMM (3.8-5.5); White Blood Count 17.9 T/CUMM (4-12)
[2021-07-01 05:12] LABS: INR 3.3
[2021-07-01] MEDS: methylPREDNISolone SOD SUC 40 MG/1 ML VIAL IV SCH ×3 (05:12→22:24)
[2021-07-01 05:17] LABS: PT Patient Result 34.1 SECS (10.5-12.0)
[2021-07-01 05:25] LABS: Calcium 9.2 MG/DL (8.5-10.1); Osmolality,Calculated 330.6 MOS/KG (273-304); Potassium 4.3 MMOL/L (3.5-5.1)
[2021-07-01 05:32] LABS: Hypochromia 1+; Lymphocytes 3 % (20-55); Microcytosis 1+; Nucleated Red Blood Cells 2 (0-5); Platelet Estimate Adequate; Segmented Neutrophils 92 % (50-85); Total Cells Counted 100
[2021-07-01] MEDS ORDERED: METOPROLOL SUCCINATE XL 50 MG TABLET PO SCH (09:00)
[2021-07-01] MEDS: AMIODARONE 200 MG TABLET PO SCH ×2 (09:58→22:24)
[2021-07-01] MEDS: ASCORBIC ACID 500 MG TABLET PO SCH ×2 (09:58→22:24)
[2021-07-01] MEDS: methIMAzole 5 MG TABLET PO SCH ×3 (09:58→22:24)
[2021-07-01] MEDS: DOCUSATE SODIUM 100 MG/10 ML UDCUP NG SCH ×2 (09:58→22:23)
[2021-07-01] MEDS: ATORVASTATIN 20 MG TABLET PO SCH (09:59)
[2021-07-01] MEDS: PANTOPRAZOLE 40 MG VIAL IV SCH (10:01)
[2021-07-01] MEDS: MULTIVITAMIN LIQUID (CENTRUM) 60 ML BOTTLE PER TUBE SCH (12:26)
[2021-07-01] MEDS: VANCOMYCIN INJ 1,000 MG in SODIUM CHLORIDE 0.9% 250 ML IV SCH (15:24)
[2021-07-01] MEDS: WARFARIN 5 MG TABLET PO SCH (17:34)
[2021-07-02] MEDS: MEROPENEM 500 MG in SODIUM CHLORIDE 0.9% 100 ML IV SCH ×3 (00:37→16:23)
[2021-07-02] MEDS: INSULIN LISPRO 100 UNIT/ML SUBCUT SCH ×6 (00:37→21:36)
[2021-07-02] MEDS: methylPREDNISolone SOD SUC 40 MG/1 ML VIAL IV SCH ×3 (04:26→21:16)
[2021-07-02] MEDS: DILTIAZEM INJ 100 MG in SODIUM CHLORIDE 0.9% 100 ML IV SCH ×2 (04:28→16:31)
[2021-07-02 05:29] LABS: Basophils % 0.1 % (0.0-0.8); Hematocrit 31.4 VOL% (42.0-52.0); Hemoglobin 10.1 GM/DL (14.0-18.0); Immature Granulocytes % 1.8 %; Immature Granulocytes Absolute 0.29 #; Lymphocytes # 0.5 10*3/uL (1.4-4.0); Lymphocytes % 2.9 % (21.2-54.2); Mean Corpuscular HGB Conc 32.2 GM/DL (32-36); Mean Corpuscular Volume 70.2 FL (87-102); Mean Platelet Volume 11.6 FL (9.6-12.0); NRBC # 0.06 10*3/uL; Neutrophils % 91.2 % (38.7-73.9); Platelet Count 418 T/CUMM (130-400); Red Blood Count 4.47 MC/CUMM (3.8-5.5); Red Cell Distribution Width 18.6 % (9.3-17.3); White Blood Count 15.8 T/CUMM (4-12)
[2021-07-02 05:44] LABS: PT Patient Result 30.8 SECS (10.5-12.0)
[2021-07-02 05:46] LABS: Calcium 8.6 MG/DL (8.5-10.1); Osmolality,Calculated 324.4 MOS/KG (273-304); Potassium 4.2 MMOL/L (3.5-5.1)
[2021-07-02 05:51] LABS: Hypochromia Slight; Lymphocytes 2 % (20-55); Microcytosis Slight; Nucleated Red Blood Cells 1 (0-5); Platelet Estimate Adequate; Segmented Neutrophils 97 % (50-85); Total Cells Counted 100
[2021-07-02] MEDS ORDERED: METOPROLOL SUCCINATE XL 100 MG TABLET PO SCH (09:00)
[2021-07-02] MEDS: AMIODARONE 200 MG TABLET PO SCH ×2 (09:52→21:15)
[2021-07-02] MEDS: ATORVASTATIN 20 MG TABLET PO SCH (09:52)
[2021-07-02] MEDS: methIMAzole 5 MG TABLET PO SCH ×3 (09:52→21:15)
[2021-07-02] MEDS: ASCORBIC ACID 500 MG TABLET PO SCH ×2 (09:52→21:15)
[2021-07-02] MEDS: METOPROLOL SUCCINATE XL 50 MG TABLET PO SCH (09:53)
[2021-07-02] MEDS: DOCUSATE SODIUM 100 MG/10 ML UDCUP NG SCH ×2 (09:53→21:15)
[2021-07-02] MEDS: MULTIVITAMIN LIQUID (CENTRUM) 60 ML BOTTLE PER TUBE SCH (09:55)
[2021-07-02] MEDS: PANTOPRAZOLE 40 MG VIAL IV SCH (09:55)
[2021-07-02] MEDS: SODIUM CHLORIDE 0.45% 1,000 ML IV SCH ×2 (10:19→14:33)
[2021-07-02] MEDS: ZINC OXIDE PASTE 113 GM TUBE TOP SCH ×2 (15:45→21:15)
[2021-07-02] MEDS: DEXTROSE 5% 1,000 ML IV SCH (16:26)
[2021-07-02] MEDS: WARFARIN 5 MG TABLET PO SCH (17:24)
[2021-07-03] MEDS: INSULIN LISPRO 100 UNIT/ML SUBCUT SCH ×6 (00:38→20:54)
[2021-07-03] MEDS: MEROPENEM 500 MG in SODIUM CHLORIDE 0.9% 100 ML IV SCH ×3 (00:38→17:24)
[2021-07-03] MEDS: methylPREDNISolone SOD SUC 40 MG/1 ML VIAL IV SCH ×3 (04:53→20:55)
[2021-07-03 04:58] LABS: Basophils % 0.1 % (0.0-0.8); Hematocrit 31.2 VOL% (42.0-52.0); Hemoglobin 10.1 GM/DL (14.0-18.0); Immature Granulocytes % 1.2 %; Lymphocytes # 0.3 10*3/uL (1.4-4.0); Mean Corpuscular HGB Conc 32.4 GM/DL (32-36); Mean Corpuscular Volume 69.5 FL (87-102); Mean Platelet Volume 11.5 FL (9.6-12.0); Monocytes % 5.2 % (1.7-12.7); NRBC # 0.03 10*3/uL; Neutrophils % 91.5 % (38.7-73.9); Platelet Count 414 T/CUMM (130-400); Red Blood Count 4.49 MC/CUMM (3.8-5.5); Red Cell Distribution Width 18.8 % (9.3-17.3); White Blood Count 16.8 T/CUMM (4-12)
[2021-07-03 05:14] LABS: Calcium 8.3 MG/DL (8.5-10.1); Osmolality,Calculated 322.6 MOS/KG (273-304); Potassium 4.3 MMOL/L (3.5-5.1)
[2021-07-03 05:19] LABS: Band Neutrophils 1 % (0-10); Lymphocytes 2 % (20-55); Nucleated Red Blood Cells 1 (0-5); Segmented Neutrophils 94 % (50-85); Total Cells Counted 100
[2021-07-03 05:20] LABS: Platelet Estimate Adequate
[2021-07-03] MEDS: AMIODARONE 200 MG TABLET PO SCH ×2 (09:08→20:57)
[2021-07-03] MEDS: ATORVASTATIN 20 MG TABLET PO SCH (09:09)
[2021-07-03] MEDS: methIMAzole 5 MG TABLET PO SCH ×3 (09:09→20:57)
[2021-07-03] MEDS: METOPROLOL SUCCINATE XL 50 MG TABLET PO SCH (09:09)
[2021-07-03] MEDS: ASCORBIC ACID 500 MG TABLET PO SCH ×2 (09:09→20:57)
[2021-07-03] MEDS: MULTIVITAMIN LIQUID (CENTRUM) 60 ML BOTTLE PER TUBE SCH (09:09)
[2021-07-03] MEDS: DOCUSATE SODIUM 100 MG/10 ML UDCUP NG SCH ×2 (09:09→20:56)
[2021-07-03] MEDS: ZINC OXIDE PASTE 113 GM TUBE TOP SCH ×2 (09:13→21:43)
[2021-07-03] MEDS: PANTOPRAZOLE 40 MG VIAL IV SCH (09:15)
[2021-07-03] MEDS: DEXTROSE 5% 1,000 ML IV SCH ×2 (13:09→13:56)
[2021-07-03] MEDS: VANCOMYCIN INJ 1,000 MG in SODIUM CHLORIDE 0.9% 250 ML IV SCH (16:48)
[2021-07-03] MEDS: DILTIAZEM INJ 100 MG in SODIUM CHLORIDE 0.9% 100 ML IV SCH (17:30)
[2021-07-03] MEDS: WARFARIN 5 MG TABLET PO SCH (17:31)
[2021-07-04] MEDS: INSULIN LISPRO 100 UNIT/ML SUBCUT SCH ×4 (02:34→12:23)
[2021-07-04 04:03] LABS: Basophils % 0.1 % (0.0-0.8); Hematocrit 30.8 VOL% (42.0-52.0); Immature Granulocytes Absolute 0.16 #; Lymphocytes # 0.4 10*3/uL (1.4-4.0); Lymphocytes % 2.2 % (21.2-54.2); Mean Corpuscular HGB Conc 32.5 GM/DL (32-36); Mean Corpuscular Volume 68.9 FL (87-102); Mean Platelet Volume 10.9 FL (9.6-12.0); Monocytes % 3.5 % (1.7-12.7); NRBC # 0.02 10*3/uL; Neutrophils % 93.2 % (38.7-73.9); Platelet Count 414 T/CUMM (130-400); Red Blood Count 4.47 MC/CUMM (3.8-5.5); Red Cell Distribution Width 18.6 % (9.3-17.3); White Blood Count 16.1 T/CUMM (4-12)
[2021-07-04 04:11] LABS: INR 2.7; PT Patient Result 27.7 SECS (10.5-12.0)
[2021-07-04 04:19] LABS: Osmolality,Calculated 317.7 MOS/KG (273-304); Potassium 4.6 MMOL/L (3.5-5.1)
[2021-07-04] MEDS: methylPREDNISolone SOD SUC 40 MG/1 ML VIAL IV SCH (04:19)
[2021-07-04 04:29] LABS: Lymphocytes 2 % (20-55); Platelet Estimate Increased; Segmented Neutrophils 94 % (50-85); Total Cells Counted 100
[2021-07-04 04:30] LABS: Hypochromia Slight; Microcytosis 1+
[2021-07-04] MEDS: AMIODARONE 200 MG TABLET PO SCH (10:06)
[2021-07-04] MEDS: ASCORBIC ACID 500 MG TABLET PO SCH (10:06)
[2021-07-04] MEDS: methIMAzole 5 MG TABLET PO SCH (10:06)
[2021-07-04] MEDS: MULTIVITAMIN LIQUID (CENTRUM) 60 ML BOTTLE PER TUBE SCH (10:07)
[2021-07-04] MEDS: ATORVASTATIN 20 MG TABLET PO SCH (10:07)
[2021-07-04] MEDS: METOPROLOL SUCCINATE XL 50 MG TABLET PO SCH (10:07)
[2021-07-04] MEDS: DOCUSATE SODIUM 100 MG/10 ML UDCUP NG SCH (10:07)
[2021-07-04] MEDS: ZINC OXIDE PASTE 113 GM TUBE TOP SCH (10:09)
[2021-07-04] MEDS: PANTOPRAZOLE 40 MG VIAL IV SCH (10:10)
[2021-07-04 12:16] VITALS: BP 132/72
[2021-07-04] MEDS ORDERED: methylPREDNISolone SOD SUC 40 MG/1 ML VIAL IV SCH (16:30)
== END 2021-07-04 17:30 | disposition expired | DRG 175 ==
LOC: N.ED 15:15 → SUATTDRO 18:30 → N.EDINP 18:30 → N.3E 19:16 → N.CC 06-26 08:29 → N.TELES 06-28 13:47
PROVIDERS: ADMIT Internal Medicine; ATTEND Internal Medicine